=== PATIENT | female | born 1970 | race Caucasian/White ===

== ENCOUNTER 2021-01-21 19:22 | Emergency (ER) | payer OTHER ==
[~2021-01-21] VITALS: Ht 167.6 cm; Wt 90.7 kg
[~2021-01-21 19:22] MED LIST: IBUPROFEN 600600 M1 PO; LOPRESSOR50 PO
[2021-01-21] MEDS ORDERED: FLEXERIL PO (21:30)
[2021-01-21 21:37] VITALS: BP 150/78
== END 2021-01-21 21:38 | disposition home or self-care (01) ==
LOC: M.ERS 19:22
DX: S16.1XXA Strain of muscle, fascia and tendon at neck level, initial encounter (principal); I10 Essential (primary) hypertension; Z79.899 Other long term (current) drug therapy; Z80.0 Family history of malignant neoplasm of digestive organs; V87.7XXA Person injured in collision between other specified motor vehicles (traffic), initial encounter; Y93.89 Activity, other specified; Y92.89 Other specified places as the place of occurrence of the external cause; Y99.8 Other external cause status

== ENCOUNTER 2021-05-03 17:27 | Emergency (ER) | payer OTHER, MEDICAID ==
[~2021-05-03] VITALS: Ht 167.6 cm; Wt 90.7 kg
[~2021-05-03 17:27] MED LIST changes: +FLEXERIL PO
[2021-05-03 18:00] VITALS: BP 136/95
[2021-05-03] MEDS ORDERED: CEFDINIR300 MG PO (19:34)
== END 2021-05-03 19:41 | disposition home or self-care (01) ==
LOC: M.ERS 17:27
DX: J06.9 Acute upper respiratory infection, unspecified (principal); H66.92 Otitis media, unspecified, left ear; I10 Essential (primary) hypertension; Z79.899 Other long term (current) drug therapy; Z88.0 Allergy status to penicillin